=== PATIENT | male | born 1975 | race Caucasian/White ===

== ENCOUNTER 2018-10-06 08:31 | Emergency (ER) | payer OTHER ==
[2018-10-06 08:35] VITALS: BP 118/74; PULSE 71; TEMP 99; BMI 24.3
[2018-10-06] MEDS ORDERED: CEPHALEXIN MONOHYDRATE 500 MG CAPSULE (UD) PO ONE (08:52)
[2018-10-06] MEDS ORDERED: CEPHALEXIN MONOHYDRATE 500 MG CAPSULE (UD) ONE (08:53)
--- NOTE | 2018-10-06 08:55 | PDOC ---
History of Present Illness - General Chief Complaint: Wound Stated Complaint: RIGHT 3RD FINGER SWELLING AND PAIN Time Seen by Provider: 10/06/18 08:52 History Source: Patient Exam Limitations: No Limitations - History of Present Illness Initial Comments: 10/06/18 09:05 43-year-old RH male with no medical history presenting with right middle finger redness and progressive swelling and pain 5 days. Started with beginning a cuticle. No other trauma. No fevers or chills, no numbness tingling or weakness to the affected finger. He has been applying pressure without success in drainage. has had prior history of paronychia, resolved with I&D. 10/06/18 09:07 Past History - Past Medical History Allergies/Adverse Reactions: Allergies Allergy/AdvReac Type Severity Reaction Status Date / Time No Known Allergies Allergy Verified 10/06/18 08:32 Home Medications: Ambulatory Orders Cephalexin Monohydrate [Keflex -] 500 mg PO Q8H 5 Days #15 capsule 10/06/18 COPD: No Other medical history: PT DENIES - Suicide/Smoking/Psychosocial Hx Smoking History: Never smoked Have you smoked in the past 12 months: No Hx Alcohol Use: No Drug/Substance Use Hx: No Substance Use Type: None Review of Systems - Review of Systems Able to Perform ROS?: Yes Comments:: 10/06/18 09:06 Review of Systems Constitutional: no fevers or chills. MUSCULOSKELETAL: +joint pain and swelling. +finger pain. No muscle pain/ arthralgias. SKIN: +finger redness, no discharge, no rash. No wounds. Hematologic: no easy bruising/bleeding. NEUROLOGIC: No weakness, numbness or tingling. Allergic/Immunologic: no allergies All other systems reviewed and negative, or as documented in HPI. 10/06/18 09:06 *Physical Exam - Vital Signs Last Vital Signs Temp Pulse Resp BP Pulse Ox 99 F 71 18 118/74 99 10/06/18 08:32 10/06/18 08:32 10/06/18 08:32 10/06/18 08:32 10/06/18 08:32 - Physical Exam Comments: 10/06/18 09:07 General: NAD, well appearing Vascular: 2+ radialis pulses symmetric and equal. Neuro: distal per assessment nurse strength 5/5. sensation grossly intact in median/radial/ ulnar distribution. MSK: soft compartments, Cap refill <2 sec. 2+ radialis pulses bilaterally and symmetric. FDP/FDS intact. no joint tenderness. FROM at DIP and PIP jt. Skin: color normal color, warm and well perfused. right distal middle finger on dorsal aspect with +erythema, swelling, tenderness and fluctuance. nailbed intact. Procedures - Incision and Drainage I&D Site: Right: Paronychia Betadine cleansed: Yes Anesthesia: 1% Lidocaine Volume(ml): 3 Blade Size: 11 Attempts: 1 Plain Packing: No Complications: none Dressing: Yes Medical Decision Making - Medical Decision Making 10/06/18 09:08 vitals wnl. no systemic sx I&D of rt middle finger, distal paronychia adj to nailbed. NVI uncomplicated, pt tolerated well warm soaks to finger, washes and proper hygiene and cleaning, cover with dry dressings/gauze abx keflex x 5 d course f/u PCP for wound recheck, return precautions if any increased pain, redness, or fever or progression/streaking *DC/Admit/Observation/Transfer Diagnosis at time of Disposition: Paronychia of finger Qualifiers: Laterality: right Qualified Code(s): L03.011 - Cellulitis of right finger - Discharge Dispostion Disposition: HOME Condition at time of disposition: Stable Decision to Admit order: No - Prescriptions Prescriptions: Cephalexin Monohydrate [Keflex -] 500 mg PO Q8H 5 Days #15 capsule - Referrals - Patient Instructions Printed Discharge Instructions: DI for Paronychia, DI for Wound Infection Additional Instructions: Please follow up with your Primary Care Doctor within 48-72 hours - call for an appointment. Rest and elevate affected area. Take Motrin 600mg every 8 hours with food for pain and or tylenol 650-1000mg every 6 hours as needed for pain. Please take Antibiotics as directed, keflex three times a day x 5 days. take antibiotics with food, can cause GI upset Wound dressed with topical Bacitracin and sterile gauze. Follow up with your primary care doctor within 48-72 hours for a wound check, retrun to the ED if worsening symptoms. Warm soaks 3-4X per day to allow for drainage of the wound. Apply bacitracin or neosporin twice a day with warm soaks and cover with gauze/ dressings. Return to the ED for any worsening pain, redness, streaking (red lines), swelling, fever or chills. If you experience any worsening redness, swelling, streaking (red lines), fever or chills please return to ED - Post Discharge Activity
== END 2018-10-06 08:59 | disposition home or self-care (01) ==
LOC: FER 08:31
PROC: 0H9QXZZ Drainage of Finger Nail, External Approach (ICD-10-PCS; principal; 2018-10-06)
DX: L03.011 Cellulitis of right finger (principal)
CPT/HCPCS: 99281-25

== ENCOUNTER 2024-06-10 04:47 | Day surgery (SDC) | payer OTHER ==
[2024-06-07 11:37] VITALS: BMI 23.6
[2024-06-10] MEDS ORDERED: MIDAZOLAM HCL 2 MG/2 ML SINGLE DOSE VIAL ONE (10:31)
[2024-06-10 11:13] VITALS: RESP 16
[2024-06-10 11:35] VITALS: BP 102/63; PULSE 60; TEMP 98
== END 2024-06-10 12:00 | disposition home or self-care (01) ==
LOC: JASU-ENDO 04:47
PROVIDERS: ATTEND Internal Medicine Gastroenterology
PROC: 0DJD8ZZ Inspection of Lower Intestinal Tract, Via Natural or Artificial Opening Endoscopic (ICD-10-PCS; principal; 2024-06-10 09:30)
DX: Z51.11 Encounter for antineoplastic chemotherapy (principal)
CPT/HCPCS: J2597